=== PATIENT | female | born 1990 | race Caucasian/White ===

== ENCOUNTER 2023-07-14 01:14 | Emergency (ER) | payer OTHER ==
[~2023-07-14] VITALS: Ht 175.3 cm; Wt 117.7 kg
[2023-07-14 02:04] LABS: BASOPHILS 0.4 % (0-2); EOSINOPHILS 1.2 % (0-6); HEMATOCRIT 41.4 % (35.0-50.0); HEMOGLOBIN 14.1 g/dL (12.0-18.0); LYMPHOCYTES 35.4 % (24-44); MCH 30.5 (27-36); MCHC 34.1 g/dl (30-36); MCV 89.5 fl (81-99); MONOCYTES 6.7 % (0-12); NEUTROPHILS 56.3 % (39-80); PLATELET COUNT 354 K/uL (140-440); RBC 4.62 M/ul (4.3-5.7); RDW 13.3 (10.5-15.0)
[2023-07-14 02:31] LABS: ALBUMIN 3.7 g/dL (3.4-5.0); ALBUMIN/GLOBULIN RATIO 0.9 (1.1-2.4); ANION GAP 15.6 (7-21); BILIRUBIN, TOTAL 0.3 ng/dL (0.2-1.0); BUN/CREATININE RATIO 15.38 (6.0-28.6); CALCIUM 8.6 mg/dL (8.5-10.1); CREATININE, SERUM 0.91 mg/dL (0.55-1.02); POTASSIUM 3.6 mmol/L (3.5-5.1); PROTEIN, TOTAL 7.8 g/dL (6.4-8.2)
[2023-07-14 03:10] LABS: BILIRUBIN, URINE NEGATIVE (negative); BLOOD/HGB, URINE LARGE (Negative); KETONE, URINE NEGATIVE (Negative); LEUK ESTERASE, URINE NEGATIVE (negative); NITRITE, URINE NEGATIVE (negative)
[2023-07-14] MEDS ORDERED: HYDROCODON-ACE1 EA10 PO (03:14)
[2023-07-14] MEDS ORDERED: FLOMAX0.4 MG PO (03:14)
[2023-07-14 03:23] LABS: RED BLOOD CELLS, URINE >50 /hpf (0-5)
[2023-07-14 03:24] LABS: BACTERIA, URINE 1+ /hpf (negative); CASTS, URINE NONE SEEN \\lpf; COLLECTION TYPE, URINE CLEAN CATCH; CRYSTALS, URINE NONE SEEN (0-1+); EPITHELIAL CELLS, URINE SQUAMOUS 2+ /lpf (0-1+); REFLEX CULTURE, URINE No (No)
[2023-07-14 03:30] VITALS: BP 129/85
== END 2023-07-14 03:30 | disposition home or self-care (01) ==
LOC: ED 01:14
PROVIDERS: Internal Medicine
DX: N13.2 Hydronephrosis with renal and ureteral calculous obstruction (principal); Z79.899 Other long term (current) drug therapy
CPT/HCPCS: 36415; 74176; 80053; 81001; 84703; 85025; 96361; 96374; 96375; 99284-25; A9270; J1885; J2270; J2405; J7121